=== PATIENT | female | born 1995 | race Two or more races ===

== ENCOUNTER 2023-01-18 03:09 | Emergency (ER) | payer OTHER ==
[~2023-01-18] VITALS: Ht 162.6 cm; Wt 65.8 kg
== END 2023-01-18 05:13 | disposition home or self-care (01) ==
LOC: ER 03:09
DX: S81.011A Laceration without foreign body, right knee, initial encounter (principal); W05.2XXA Fall from non-moving motorized mobility scooter, initial encounter; Y93.89 Activity, other specified; Y92.89 Other specified places as the place of occurrence of the external cause; Y99.9 Unspecified external cause status